=== PATIENT | female | born 2000 | race Caucasian/White ===

== ENCOUNTER 2024-04-10 08:52 | Inpatient (IN) ==
[2024-04-10] MEDS ORDERED: ACETAMINOPHEN 500 MG TAB PO PRN (11:26)
[2024-04-10] MEDS ORDERED: LIDOCAINE 1% LOCAL 20 ML VIAL INFIL PRN (11:26)
--- NOTE | 2024-04-10 11:33 | History & Physical Report ---
Date of Service April 10, 2024 Assessment & Plan (1) Prior with demise, antepartum: Plan: 23-year-old female with prior stillborn presents for induction of labor at 37- 2/7 weeks. Induction at this gestation recommended by M because of placental thickening and prior stillborn Will begin Pitocin per labor and delivery protocol. Epidural if requested- hoping to avoid epidural. Anticipate vaginal . Admission and Anticipated Discharge Date Admission Date: April 10, 2024 History of Present Illness Primary Care Provider: VIET Lay Patient is a 23-year-old 2 para 1-0-0-0 female EDC of 04/29/2024 who presents at 37-2/7 weeks for induction of labor. has been complicated by placental thickening and M recommendation is to deliver between 37 to 38 weeks. Her first was a vaginal delivery of a demise. GBS is negative. testing has been reassuring. Patient also has a history of a Chiari I malformation but as such is not a contraindication to vaginal . Allergies Allergy/AdvReac Type Severity Reaction Status Date / Time cefdinir [From Omnicef] Allergy Intermediate Hives Verified 04/10/24 11:45 Home Medications Medication Instructions Recorded Confirmed Type prenat.vits,amol,sxj-ehan-xytfk 1 tab PO DAILY 09/12/23 04/10/24 History sertraline 50 mg tablet 50 mg PO DAILY 11/14/23 04/10/24 History polyethylene glycol 3350 17 17 g PO DAILY 12/12/23 04/10/24 History gram/dose oral powder (Miralax) Patient History Medical History (Updated 04/10/24 @ 13:34 by Ruma Dangelo MD, FACOG) Depression Anxiety hematoma hx of PPH require Day, no blood transfusion. Chiari malformation type I Delivery outcome of single stillborn infant hx: 39 week demise ?laceration on cord. 12/06/22 Surgical History Hx of tympanostomy tubes S/P tonsillectomy and adenoidectomy Family History Mother Myocardial infarction Grandfather Myocardial infarction Other Gestational diabetes Heart disease Social History Smoking Status: Current every day smoker Tobacco Type: E-cigarettes / Vaping Cigarettes Per Day: vapes multiple times per hour; Do You Dip or Chew Tobacco: No; Hx Alcohol Use: No Hx Substance Use: No Preferred Language: Sudanese Communication Ability: Effective Safety And Occupational Health Manager Required: No Beliefs That Will Affect Care: None marital status: marital status details: Emre Root (32) [phone] Current Living Situation: Spouse Current Living Situation Comment: lives with spouse, nephew , 4 dogs, 2 cats, spouse to change litter current occupational status: employed current occupation: [employer] Feels Safe at Home: Yes Safety Concerns: Feels Safe At This Time Diet: regular Review of Systems All systems reviewed & are unremarkable except as noted in HPI & below Physical Exam Constitutional: WD/WN, vitals as above Psychiatric: A+Ox3, euthymic affect Genitourinary: OB Exam Abdomen: + vertex, + estimated weight (6-7 pounds) and + irregular contractions Manual OB Exam: + cervical dilation 3 cm, + cervical effacement 70% and + station -2 OB Exam Monitor Tracing: + external FHT monitor used, + external uterine monitor used, + category I and + normal FHT variability Code Status & VTE Plan VTE Prophylaxis Plan VTE Prophylaxis will be ordered: No Coding Level of Care Code 05678 INT INP/OBS CARE 1/40MIN Diagnoses Prior with demise and current in third trimester O09.293 Trimester: third trimester (1) Prior with demise, antepartum Trimester: third trimester Qualified Code(s): O09.293 - Supervision of with other poor reproductive or obstetric history, third trimester
[2024-04-10 12:02] LABS: Hematocrit (blood only) 36.8 % (37.0-47.0); Hemoglobin 12.4 g/dl (12.0-16.0); Mean Corpuscular Hemoglobin 30.3 pg (25.0-34.0); Mean Corpuscular Hgb Conc 33.7 g/dL (32.0-36.0); Mean Platelet Volume 10.9 fL (9.4-12.4); Platelet Count 193 K/uL (130-400); RDW Coefficient of Variation 14.4 % (11.5-14.5); RDW Standard Deviation 47.5 fL (36.4-46.3); Red Blood Count 4.09 M/uL (4.20-5.40); White Blood Count 9.15 K/ul (4.8-10.8)
[2024-04-10] MEDS ORDERED: SODIUM CHLORIDE 0.9% 50 ML IV PRN (12:19)
[2024-04-10] MEDS ORDERED: SODIUM CHLORIDE 0.9% 100 ML IV PRN (12:19)
[2024-04-10] MEDS: SODIUM CHLORIDE 0.9% 1,000 ML IV SCH (13:07)
[2024-04-10] MEDS: OXYTOCIN 30 UNITS/NSS 30 UNITS/500 ML BAG IV PRN ×2 (13:08→23:46)
--- NOTE | 2024-04-10 20:19 | Labor Progress Brief Note ---
Date of Service April 10, 2024 Subjective Reason For Note: Routine Evaluation pitocin at 18 milliunits ctns moderate Q 2-3 minutes FHR category 1 cervix 5cm/90/-1 AROM for clear fluid continue current care plan Assessment & Plan Admission and Anticipated Discharge Date Admission Date: April 10, 2024 Results & Data Vital Signs (Past 12 Hours) Vital Signs Temp Pulse Resp BP O2 Del Method 04/10/24 20:10 18 04/10/24 20:10 97.9 F 18 04/10/24 20:03 77 125/75 04/10/24 19:30 18 04/10/24 19:30 18 04/10/24 19:04 18 04/10/24 19:04 97.7 F 18 04/10/24 19:01 92 H 120/78 04/10/24 18:59 97.7 F 18 04/10/24 18:59 Room Air 04/10/24 18:00 100 H 112/67 04/10/24 17:02 85 114/62 04/10/24 16:01 95 H 121/74 04/10/24 15:02 86 125/81 04/10/24 15:00 18 04/10/24 15:00 98.4 F 18 04/10/24 14:02 86 122/76 04/10/24 13:00 101 H 117/73 04/10/24 11:41 98.2 F 18 04/10/24 11:32 101 H 130/71 Coding Level of Care Code 05514 SUB INP/OBS CARE 1/25MIN
[2024-04-10] MEDS ORDERED: diphenhydrAMINE 50 MG/ML VIAL IV PRN (21:44)
[2024-04-10] MEDS ORDERED: NALOXONE HCL 0.4 MG/1 ML VIAL/CARP IV PRN (21:44)
[2024-04-10] MEDS ORDERED: fentaNYL citrate PF 100 MCG/2 ML VIAL EPI PRN (21:44)
[2024-04-10] MEDS ORDERED: fentANYL 2 MCG/ML BUPIVacaine 0.125%-NSS 100ML BAG EPI PRN (21:44)
[2024-04-10] MEDS ORDERED: ePHEDrine sulfate 50 MG/ML AMP IV PRN (21:44)
[2024-04-10] MEDS ORDERED: NALBUPHINE HCL INJ 10 MG/ML AMP IV PRN (21:44)
[2024-04-10] MEDS ORDERED: NALOXONE HCL 1 MG in SODIUM CHLORIDE 0.9% 1,000 ML IV PRN (21:44)
[2024-04-10] MEDS ORDERED: ROPIVACAINE 0.5% PF 5 MG/ML 20 ML VIAL EPI PRN (21:44)
[2024-04-10] MEDS ORDERED: LIDOCAINE 2% MPF LOCAL 5 ML VIAL EPI PRN (21:44)
[2024-04-10] MEDS ORDERED: BUPIVACAINE 0.25% PF 30 ML VIAL EPI PRN (21:44)
[2024-04-10] MEDS ORDERED: SODIUM CHLORIDE 0.9% PF INJ 10 ML VIAL EPI PRN (21:44)
--- NOTE | 2024-04-10 21:44 | Anesthesiology Consultation ---
Date of Service April 10, 2024 Assessment & Plan (1) Encounter for pre-operative examination: Chart Review Chart Review: Patient NOT seen in Pre Admission Testing and Acceptable Risk for Labor Epidural Consults Requested none History Height/Weight Height: 5 ft Weight: 98.43 kg Allergies Allergy/AdvReac Type Severity Reaction Status Date / Time cefdinir [From Omnicef] Allergy Intermediate Hives Verified 04/10/24 11:45 Medications Home Medications Medication Instructions Recorded Confirmed Last Taken prenat.vits,amol,tcm-jhmm-eqfgo 1 tab PO DAILY 09/12/23 04/10/24 04/09/24 sertraline 50 mg tablet 50 mg PO DAILY 11/14/23 04/10/24 04/09/24 polyethylene glycol 3350 17 17 g PO DAILY 12/12/23 04/10/24 04/09/24 gram/dose oral powder (Miralax) Active Medications Generic Name Dose Route Start Last Admin Trade Name Freq PRN Reason Stop Dose Admin Oxytocin 30 units in 500 mls @ 18 mls/hr 04/10/24 11:26 04/10/24 19:04 Pitocin 30 Units/Nss IV 04/12/24 11:25 1.08 units/hr .Q24H PRN 18 mls/hr Labor Induction/Augmentation Titration Protocol 1.08 UNITS/HR Sodium Chloride 1,000 mls @ 50 mls/hr 04/10/24 13:15 04/10/24 21:26 Nss IV 04/11/24 13:14 999 mls/hr .Q20H FELIX Infusion Past Medical History Medical History Depression Anxiety hematoma hx of PPH require Day, no blood transfusion. Chiari malformation type I Delivery outcome of single stillborn infant hx: 39 week demise ?laceration on cord. 12/06/22 Past Family History Family History Mother Myocardial infarction Grandfather Myocardial infarction Other Gestational diabetes Heart disease Past Surgical History Surgical History Hx of tympanostomy tubes S/P tonsillectomy and adenoidectomy Social History Smoking Status: Current every day smoker Smoking cigarettes per day: vapes multiple times per hour Do You Dip or Chew Tobacco: No Hx Alcohol Use: No Hx Substance Use: No substance use type: does not use Physical Exam Vital Signs Last Vital Signs Temp 97.9 F 04/10/24 20:10 Pulse 113 H 04/10/24 21:40 Resp 18 04/10/24 21:00 BP 124/76 04/10/24 21:00 Pulse Ox 92 04/10/24 21:40 O2 Del Method Room Air 04/10/24 18:59 Testing Laboratory Results 04/10/24 11:34 Blood Type O Positive 04/10/24 11:34 Antibody Screen NEGATIVE 04/10/24 11:34
[2024-04-10] MEDS: LIDOCAINE 2%/EPINEPHRINE 1:200,000 20 ML PF ONE (22:08)
[2024-04-10] MEDS: fentaNYL citrate PF 100 MCG/2 ML VIAL ONE (22:08)
[2024-04-10] MEDS: BUPIVACAINE 0.25% PF 30 ML VIAL ONE (22:08)
[2024-04-10] MEDS: fentANYL 2 MCG/ML BUPIVacaine 0.125%-NSS 100ML BAG ONE (22:11)
[2024-04-10] MEDS: SODIUM CHLORIDE 0.9% PF INJ 10 ML VIAL ONE (22:33)
[2024-04-10] MEDS: ePHEDrine sulfate 50 MG/ML AMP ONE (22:33)
[2024-04-10] MEDS: fentaNYL citrate PF 100 MCG/2 ML VIAL EPI STA (22:33)
[2024-04-10] MEDS: BUPIVACAINE 0.25% PF 30 ML VIAL EPI STA (22:33)
[2024-04-10] MEDS: LIDOCAINE 2%/EPINEPHRINE 1:200,000 20 ML PF EPI STA (22:34)
[2024-04-10] MEDS: SODIUM CHLORIDE 0.9% PF INJ 10 ML VIAL EPI STA (22:34)
[2024-04-10] MEDS ORDERED: OXYTOCIN 30 UNITS/NSS 30 UNITS/500 ML BAG IV PRN (23:32)
[2024-04-10] MEDS ORDERED: bisacodyL 10 MG SUPP PR PRN (23:32)
[2024-04-10] MEDS ORDERED: oxyCODONE/ACETAMINOPHEN 5mg/325mg TAB PO PRN (23:32)
[2024-04-10] MEDS ORDERED: DIPHTHER/TETAN/PERTUS Vaccine (Tdap, Adol/Adult) 0.5mL IM ONE (23:32)
[2024-04-10] MEDS ORDERED: HYDROCORTISONE ACETATE 25 MG SUPP PR PRN (23:32)
[2024-04-10] MEDS ORDERED: ACETAMINOPHEN 325 MG TAB PO PRN (23:32)
[2024-04-10] MEDS: CALCIUM CARBONATE 500 MG CHEWABLE TAB PO PRN (23:42)
[2024-04-10] MEDS: miSOPROStoL 200 MCG TAB PR ONE (23:52)
--- NOTE | 2024-04-11 00:06 | Delivery Summary ---
Vaginal Delivery Summary Date of Service April 11, 2024 Vaginal Delivery Summary Patient is a 23-year-old 2 para 1-0-0-0 female EDC of 04/29/2024 who presents at 37-3/7 weeks for induction of labor because of prior demise at 39 weeks and placental thickening. Pitocin induction was begun per protocol in labor and delivery. Membranes were ruptured for clear fluid. She requested epidural analgesia which was effective and she progressed to full dilation with the urge to push. She pushed effectively over intact perineum for delivery of a viable female infant. After the head was delivered the rest the delivered easily. She was initially vigorous and crying she was placed on mother's abdomen for further attention and drying. After 1 minute the cord was clamped and cut. The baby was then moved to the bed for stimulation and warming. After cord blood was obtained, the placenta was expressed intact with a three-vessel cord. This will be sent for exam. bleeding was controlled with dilute Pitocin and fundal massage. Initially the fundus was very firm, however there was a steady trickle following delivery. 800 mcg of Cytotec were then placed rectally. bleeding at this point was now minimal. IV Pitocin was continued at this time. Initial QBL is 575 cc pending the weight of chux postdelivery. Mother and were doing well after delivery. [facility] [place] Vaginal Delivery Charge Delivery Type Details: MARYBETH
[2024-04-11] MEDS: BUTORPHANOL TARTRATE 2 MG/ML VIAL IV ONE (00:07)
[2024-04-11] MEDS: SERTRALINE HCL 50 MG TABLET PO ONE (00:58)
[2024-04-11] MEDS: BENZOCAINE 20% SPRY 85 APPLN/85 GM CAN EXT PRN (02:07)
[2024-04-11] MEDS: IBUPROFEN 600 MG TAB PO PRN (05:52)
[2024-04-11 07:07] LABS: Hematocrit (blood only) 34.9 % (37.0-47.0); Hemoglobin 11.3 g/dl (12.0-16.0); Mean Corpuscular Hemoglobin 29.6 pg (25.0-34.0); Mean Corpuscular Hgb Conc 32.4 g/dL (32.0-36.0); Mean Corpuscular Volume 91.4 fL (80.0-100.0); Mean Platelet Volume 11.3 fL (9.4-12.4); Platelet Count 181 K/uL (130-400); RDW Coefficient of Variation 14.5 % (11.5-14.5); RDW Standard Deviation 48.3 fL (36.4-46.3); Red Blood Count 3.82 M/uL (4.20-5.40); White Blood Count 12.69 K/ul (4.8-10.8)
--- NOTE | 2024-04-11 08:18 | Anesthesia Procedure Note ---
Date of Service April 11, 2024 Anesthesia Post Epidural Note Vital Signs Vital Signs: Temp Pulse Resp BP Pulse Ox O2 Del Method 36.6 C 72 16 136/88 98 Room Air 04/11/24 07:31 04/11/24 07:31 04/11/24 07:31 04/11/24 07:31 04/11/24 07:31 04/11/24 07:35 Pain Intensity Bilateral Abdomen: Pain Intensity: 9 Notes Mental Status: alert / awake / arousable and participated in evaluation Nausea / Vomiting: adequately controlled Pain: adequately controlled Airway Patency, RR, SpO2: stable & adequate BP & HR: stable & adequate Hydration State: stable & adequate Neuraxial Anesthesia: was administered and sensory block is resolving Anesthetic Complications: no major complications apparent Epidural: Removed without complications and With tip intact
[2024-04-11] MEDS: PRENATAL VITAMIN 1 TAB PO SCH (08:31)
[2024-04-11] MEDS: DOCUSATE SODIUM 100 MG CAP PO SCH (08:31)
--- NOTE | 2024-04-11 09:05 | Obstetrical Progress Note ---
Date of Service April 11, 2024 Assessment & Plan (1) Encounter for care and examination after delivery: expected course continue current care plan Subjective Ambulation: ambulating normally Voiding: no voiding problems Passing Gas:: Yes Diet Tolerance:: regular diet Lochia:: Moderate Feeding Type:: breast feeding lochia now moderate to small minimal cramping going well Review of Systems All systems reviewed & are unremarkable except as noted in HPI & below Physical Exam Constitutional WD/WN, vitals as above Psychiatric A+Ox3, euthymic affect Genitourinary OB Exam Abdomen: + fundal height Fundus: + firm and + relation to umbilicus (1 below U) Results & Data Vital Signs (Past 12 Hours) Vital Signs Temp Pulse Pulse Pulse Resp BP BP 04/11/24 07:35 04/11/24 07:31 97.9 F 72 16 136/88 04/11/24 03:00 98.6 F 107 H 18 116/76 04/11/24 01:25 18 04/11/24 01:25 109 H 122/66 04/11/24 01:11 101 H 126/62 04/11/24 00:26 100 H 111/55 L 04/11/24 00:25 18 04/11/24 00:11 104 H 127/61 04/11/24 00:10 18 04/10/24 23:59 103 H 123/58 L 04/10/24 23:55 18 04/10/24 23:41 96 H 120/60 04/10/24 23:40 18 04/10/24 23:27 121 H 136/72 04/10/24 23:25 18 04/10/24 23:23 103 H 04/10/24 23:18 107 H 04/10/24 23:13 128 H 04/10/24 23:07 111 H 04/10/24 23:06 112 H 04/10/24 23:01 103 H 04/10/24 23:00 109 H 20 04/10/24 22:59 102 H 135/82 04/10/24 22:55 98 H 04/10/24 22:54 106 H 04/10/24 22:50 107 H 04/10/24 22:45 114 H 136/80 04/10/24 22:41 115 H 04/10/24 22:40 109 H 04/10/24 22:35 12/13/24 22:35 119 H 04/10/24 22:35 115 H 04/10/24 22:30 117 H 20 04/10/24 22:29 93 H 129/67 04/10/24 22:25 95 H 04/10/24 22:20 100 H 04/10/24 22:15 98.1 F 113 H 04/10/24 22:13 107 H 122/69 04/10/24 22:11 110 H 122/65 04/10/24 22:10 112 H 04/10/24 22:09 112 H 117/61 04/10/24 22:08 110 H 115/64 04/10/24 22:05 04/10/24 22:05 111 H 04/10/24 22:05 118 H 142/79 H 04/10/24 22:03 117 H 137/81 04/10/24 22:01 139 H 135/85 04/10/24 21:59 04/10/24 21:59 131 H 04/10/24 21:59 125 H 04/10/24 21:54 04/10/24 21:54 112 H 04/10/24 21:54 121 H 04/10/24 21:51 112 H 124/73 04/10/24 21:49 111 H 04/10/24 21:48 108 H 04/10/24 21:44 101 H 04/10/24 21:40 113 H 04/10/24 21:39 117 H 04/10/24 21:34 139 H 04/10/24 21:25 20 04/10/24 21:25 20 Pulse Ox O2 Del Method 04/11/24 07:35 Room Air 04/11/24 07:31 98 Room Air 04/11/24 03:00 97 Room Air 04/11/24 01:25 04/11/24 01:25 04/11/24 01:11 04/11/24 00:26 04/11/24 00:25 04/11/24 00:11 04/11/24 00:10 04/10/24 23:59 04/10/24 23:55 04/10/24 23:41 04/10/24 23:40 04/10/24 23:27 04/10/24 23:25 04/10/24 23:23 95 04/10/24 23:18 99 04/10/24 23:13 98 04/10/24 23:07 84 L 04/10/24 23:06 95 04/10/24 23:01 96 04/10/24 23:00 86 L 04/10/24 22:59 04/10/24 22:55 96 04/10/24 22:54 84 L 04/10/24 22:50 95 04/10/24 22:45 98 04/10/24 22:41 84 L 04/10/24 22:40 97 04/10/24 22:35 86 L 04/10/24 22:35 04/10/24 22:35 87 L 04/10/24 22:30 98 04/10/24 22:29 04/10/24 22:25 95 04/10/24 22:20 95 04/10/24 22:15 95 04/10/24 22:13 04/10/24 22:11 04/10/24 22:10 95 04/10/24 22:09 04/10/24 22:08 04/10/24 22:05 96 04/10/24 22:05 04/10/24 22:05 04/10/24 22:03 04/10/24 22:01 04/10/24 21:59 98 04/10/24 21:59 04/10/24 21:59 87 L 04/10/24 21:54 100 04/10/24 21:54 04/10/24 21:54 90 04/10/24 21:51 04/10/24 21:49 98 04/10/24 21:48 90 04/10/24 21:44 98 04/10/24 21:40 92 04/10/24 21:39 94 04/10/24 21:34 98 04/10/24 21:25 04/10/24 21:25
[2024-04-11] MEDS: bisacodyL 5 MG TABEC PO SCH (20:40)
[2024-04-11] MEDS: SERTRALINE HCL 50 MG TABLET PO SCH (20:40)
[2024-04-12 06:56] LABS: Hematocrit (blood only) 37.3 % (37.0-47.0); Hemoglobin 12.4 g/dl (12.0-16.0)
[2024-04-12 08:19] VITALS: BP 113/65; RESP 18; TEMP 98.4; O2SAT 99
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
[2024-04-12 08:43] VITALS: PULSE 87
== END 2024-04-12 09:24 | disposition home or self-care (01) | DRG 807 ==
LOC: 4S1 11:13 → 4E2 04-11 01:50